=== PATIENT | female | born 1980 | race Hispanic/Latino ===

== ENCOUNTER 2016-12-22 21:27 | Emergency (ER) | payer OTHER ==
[~2016-12-22] VITALS: Ht 165.1 cm; Wt 97.5 kg
[2016-12-22 21:37] VITALS: BP 136/87
--- NOTE | 2016-12-22 21:40 | ED UPPER/LOWER EXTREMITY COMPL ---
History of Present Illness General Chief Complaint: Lower Extremity Problems Stated Complaint: RIGHT LEG PAIN ON AND OFF Source: patient, old records Exam Limitations: no limitations Vital Signs & Intake/Output Vital Signs & Intake/Output Vital Signs Date Time Temp Pulse Resp B/P B/P Pulse O2 O2 Flow FiO2 Mean Ox Delivery Rate 12/22 2136 97.9 75 15 136/87 100 Room Air Allergies Coded Allergies: NO KNOWN ALLERGIES (02/03/14) Reconcile Medications Methocarbamol (Robaxin-750) 750 MG TABLET 1 TAB PO TID PRN PAIN Triage Note: PT TO ED FOR INTERMITTENT PAIN IN R LEG X1 MONTH. PT CONCERNED THAT THIS PAIN IS ATTRIBUTED TO AN INGROWN HAIR SHE HAD IN HER R GROIN APPROX 1 MONTH AGO WELL. Triage Nurses Notes Reviewed? yes Onset: Gradual Duration: CONSTANT X 1 MONTH Timing: recent history Severity: mild Severity Numbers: 4 Pain/Injury Location: Right: Leg. Method of Injury: unknown No Modifying Factors: none Associated Symptoms: none : No Patient currently breastfeeds: No HPI: 36-year-old female presents to ER for evaluation complaining of intermittent anterior right leg pain that radiates around to her back for the past 1 month. She states the symptoms began after she's had a "infected hair follicle" 1 month ago. She states the symptoms resolved on their own at the time however that ever since she states her leg has been "locking up". She denies pain at this time she denies any rashes to her skin no history of abscess requiring drainage. Her last menstrual period is currently now. She denies any urinary complaints. She states the pain and really radiates down her leg no leg swelling. No other joint pain no other modifying factors or associated symptoms. She is not sought care for the symptoms until today. She took her mother's Flexeril without improvement. (NIRAV RAMIREZ) Past History Travel History Traveled to [place] past 21 day No Medical History Any Pertinent Medical History? none Neurological: NONE EENT: NONE Cardiovascular: NONE Respiratory: NONE Gastrointestinal: NONE Hepatic: NONE Renal: NONE Musculoskeletal: NONE Psychiatric: NONE Endocrine: NONE Blood Disorders: NONE Cancer(s): NONE Surgical History Surgical History: none Psychosocial History What is your primary language Japanese Tobacco Use: Never used Daily Tobacco Use Amount/Type: => 5 Cigarettes daily ETOH Use: occasional use Illicit Drug Use: denies illicit drug use Family History Hx Contributory? No (NIRAV RAMIREZ) Review of Systems Review of Systems Constitutional: Reports: see HPI. All Other Systems: Reviewed and Negative Comments Review of systems: See HPI, All other systems negative. Constitutional, no chills no fever, no malaise no weight loss HEENT: No visual changes no sore throat no congestion, no ear pain Cardiovascular: No chest pain , no palpitation , no orthopnea Skin: no rashes, no change in skin Respiratory: No dyspnea no cough no sputum no hemoptysis GI: No nausea no vomiting, no diarrhea, no bloating/constipation : No dysuria No hematuria, no frequency, no discharge Muscle skeletal: No joint pain, no joint swelling, no back pain, no neck pain, Neurologic: No numbness no confusion, no headache Psych: No stress Heme/endocrine: No bruising no bleeding Immunology: No lymphadenopathy (NIRAV RAMIREZ) Physical Exam Physical Exam General Appearance: well developed/nourished, no apparent distress, alert, awake Comments: Well-developed well-nourished patient in no apparent distress. HEENT: Atraumatic, extraocular motion intact Neck: Supple, FROM Back: FROM Cardiovascular: Regular rate and rhythms no murmurs rubs or gallops, Respiratory: No respiratory distress. Patient speaking in full complete sentences. Breath sounds clear to auscultation bilaterally: NO W/R/R Upper Extremities: full range of motion Hip/Pelvis: Atraumatic/Stable. FROM. No pain with pelvic compression Knee: Atraumatic/stable. FROM. No joint swelling, no effusion. No laxity. Negative amparo/anterior drawer test. No pain with ROM Leg: Atraumatic. Nontender. No edema, 5 out of 5 strength in the lower extremity, normal dorsiflexion of great toe bilaterally, gross sensation is intact, patellar tendon reflex 2+ bilaterally. Ankle/Foot: Atraumatic/stable. Skin intact. FROM. No swelling, no effusion. No laxity on exam Pulses: Normal/equal DP/PT pulses bilaterally. Brisk cap refill Neuro: awake, alert, and oriented to person, place and time. There were no obvious focal neurologic abnormalities. Skin: Warm & dry;No appreciable rash on exposed skin, no induration no erythema Psych: Mood affect normal, normal memory normal judgment. (NIRAV RAMIREZ) Progress Differential Diagnosis: arterial insufficiency, cellulitis, CHF, compartment syndrome, contusion, dislocation, DVT, gout, sprain, tendon injury, abscess, folliculitis, SCIATICA Plan of Care: I discussed with the patient at length all of their results. I had an extensive conversation regarding need for close follow up with their primary care physician this week as well as return precautions. I answered all of their questions, they feel comfortable with the plan and follow-up care. (NIRAV RAMIREZ) Departure Departure Time of Disposition: 2207 Disposition: HOME OR SELF CARE Condition: Stable Clinical Impression Primary Impression: Leg pain Referrals: PATIENT HAS NO PRIMARY CARE DR Additional Instructions: REST, ICE, ROBAXIN DIRECTED. FOLLOW UP WITH DR SANTIAGO NEXT WEEK. RETURN WITH ANY CONCERNS Departure Forms: Customer Survey General Discharge Information Prescriptions: Current Visit Scripts Methocarbamol (Robaxin-750) 1 TAB PO TID PRN PAIN #10 TAB (NIRAV RAMIREZ) PA/SUPERVISOR PHOSPHATIC FERTILIZER Co-Sign Statement Statement: ED Attending supervision documentation- [] I saw and evaluated the patient. I have also reviewed all the pertinent lab results and diagnostic results. I agree with the findings and the plan of care as documented in the PA's/SUPERVISOR PHOSPHATIC FERTILIZER's documentation. [X] I have reviewed the ED Record and agree with the PA's/SUPERVISOR PHOSPHATIC FERTILIZER's documentation. [] Additions or exceptions (if any) to the PAs/SUPERVISOR PHOSPHATIC FERTILIZER's note and plan are summarized below: [] (ALEJANDRO KING,CHRISTINE)
[2016-12-22] MEDS ORDERED: ROBAXIN-750750 M1 PO (22:08)
== END 2016-12-22 22:13 ==
LOC: ERH 21:27
DX: M79.604 Pain in right leg (principal)

== ENCOUNTER 2017-01-16 20:28 | Emergency (ER) | payer OTHER ==
[~2017-01-16] VITALS: Ht 165.1 cm; Wt 99.8 kg
[~2017-01-16 20:28] MED LIST: ROBAXIN-750750 M1 PO
--- NOTE | 2017-01-16 21:06 | ED GENERAL ADULT ---
History of Present Illness General Chief Complaint: Lower Extremity Problems Stated Complaint: RIGHT SIDE BACK AND LEG PAIN Source: patient Exam Limitations: no limitations Vital Signs & Intake/Output Vital Signs & Intake/Output Vital Signs Date Time Temp Pulse Resp B/P B/P Pulse O2 O2 Flow FiO2 Mean Ox Delivery Rate 01/166 97.9 76 18 128/70 98 Room Air 01/16 2046 97.5 83 21 121/82 97 Room Air ED Intake and Output 01/17 0000 01/16 1200 Intake Total 0 Output Total Balance 0 Intake, Oral 0 Patient 220 lb Weight Weight Reported by Patient Measurement Method Allergies Coded Allergies: No Known Allergies (01/16/17) Reconcile Medications Cyclobenzaprine HCl 10 MG TABLET 1 TAB PO 4 TIMES/DAY PRN MUSCLE SPASM Ibuprofen 800 MG TABLET 1 TAB PO TID PRN pain Methocarbamol (Robaxin-750) 750 MG TABLET 1 TAB PO TID PRN PAIN Triage Note: TRIAGE: PT TO ER C/C PAIN FROM R GROIN DOWN TO KNEE AND INTO BACK X 1 MONTH. CONSTANT SINCE ONSET THOUGH WAXES/WANES IN INTENSITY. WORSE SINCE YESTERDAY, STATES WAS "GOING UP THE STAIRS CONSTANTLY TO DO CLOTHES" SO MAY HAVE AGGRAVATED IT. TAKING ALEVE WITH NO RELIEF. GIVEN TYLENOL AT TRIAGE PER REQUEST. WAS SEEN HERE FOR SAME BUT "THEY DIDN'T CHECK NOTHING, SAID IT MAY HAVE BEEN A SPRAINED MUSCLE, BUT IT WASN'T BAD THEN. TODAY IT WENT TOO MUCH." Triage Nurses Notes Reviewed? yes Onset: Gradual Duration: week(s): Timing: recent history Injury Environment: home Severity: mild, moderate Modifying Factors: Worsens With: movement. Associated Symptoms: muscle spasm : No Patient currently breastfeeds: No HPI: 36-year-old woman in prior good health presents with one-month history of right sided lower lumbar pain. She states the pain radiates from her back into her buttock and down her posterior leg. She notes that she is able to ambulate. She's been taking naproxen with mild improvement. She notes no injury. She notes that it hurts when she moves a lot. She has no fever chills rashes joint swelling weakness urinary incontinence. She is otherwise well and has no other concerns. Past History Travel History Traveled to [place] past 21 day No Medical History Any Pertinent Medical History? see below for history Neurological: NONE EENT: NONE Cardiovascular: NONE Respiratory: NONE Gastrointestinal: NONE Hepatic: NONE Renal: NONE Musculoskeletal: NONE Psychiatric: NONE Endocrine: NONE Blood Disorders: NONE Cancer(s): NONE CNC MACHINE OPERATOR/Reproductive: NONE Surgical History Surgical History: none Psychosocial History What is your primary language Kyrgyz Tobacco Use: Current Daily Use Daily Tobacco Use Amount/Type: => 5 Cigarettes daily ETOH Use: occasional use Illicit Drug Use: denies illicit drug use Family History Hx Contributory? No Review of Systems Review of Systems Constitutional: Reports: no symptoms. EENTM: Reports: no symptoms. Respiratory: Reports: no symptoms. Cardiovascular: Reports: no symptoms. GI: Reports: no symptoms. Genitourinary: Reports: no symptoms. Musculoskeletal: Reports: no symptoms. Skin: Reports: no symptoms. Neurological/Psychological: Reports: no symptoms. Hematologic/Endocrine: Reports: no symptoms. Immunologic/Allergic: Reports: no symptoms. All Other Systems: Reviewed and Negative Physical Exam Physical Exam General Appearance: well developed/nourished, mild distress Head: atraumatic, normal appearance Eyes: Bilateral: normal appearance. Ears, Nose, Throat: normal pharynx, normal ENT inspection Neck: normal inspection, supple, full range of motion Respiratory: normal breath sounds, chest non-tender, no respiratory distress, quiet respiration, lungs clear Cardiovascular: regular rate/rhythm Gastrointestinal: normal bowel sounds, soft, non-tender, no organomegaly Back: normal inspection, normal range of motion, muscle spasm, no vertebral tenderness, region with moderate para vertebral muscle spasm and tenderness to palpation Extremities: normal inspection Neurologic/Psych: no motor/sensory deficits, awake, alert, oriented x 3, normal gait, normal mood/affect Reflexes: 1+: bicep (R), bicep (L), knee (R), knee (L). Skin: intact, normal color, warm/dry Core Measures ACS in differential dx? No CVA/TIA Diagnosis: No Severe Sepsis Present: No Septic Shock Present: No Progress Differential Diagnoses I considered the following diagnoses in my evaluation of the patient: Muscle spasm versus other versus sciatica versus disc disease Plan of Care: Current Medications Sig/Vicki Start time Last Medication Dose Stop Time Status Admin Cyclobenzaprine HCl 10 MG ONCE ONE 01/16 2215 UNVr (Flexeril 10MG Tab) 01/17 2216 Ketorolac 60 MG ONCE ONE 01/16 2215 UNVr Tromethamine 06/04 2216 (Toradol) Initial ED EKG: none Departure Departure Disposition: HOME OR SELF CARE Condition: Stable Clinical Impression Primary Impression: Back pain Secondary Impressions: Myalgia Referrals: OBIE SANTIAGO MD (PCP/Family) Departure Forms: Customer Survey General Discharge Information Prescriptions: Current Visit Scripts Ibuprofen 1 TAB PO TID PRN pain #60 TAB Ref 1 Cyclobenzaprine HCl 1 TAB PO 4 TIMES/DAY PRN MUSCLE SPASM #30 TAB Ref 1 Comments Encourage close follow-up with PMD and referral for physical therapy. I gave a prescription for ibuprofen and Flexeril. Close follow-up and advised Critical Care Note Critical Care Note Critical Care Time: non-applicable
[2017-01-16] MEDS ORDERED: CYCLOBENZAPRINE10 M1 PO (22:15)
[2017-01-16] MEDS ORDERED: IBUPROFEN800 M1 PO (22:15)
[2017-01-16 22:36] VITALS: BP 128/70
== END 2017-01-16 22:36 ==
LOC: ERH 20:28
DX: M54.5 Low back pain (principal); M79.1 Myalgia
CPT/HCPCS: 96372; J1885

== ENCOUNTER 2017-09-25 16:44 | Emergency (ER) | payer OTHER ==
[~2017-09-25] VITALS: Ht 165.1 cm; Wt 94.3 kg
[~2017-09-25 16:44] MED LIST changes: +BACTRIM DS TAB1 EACH PO; +CYCLOBENZAPRINE10 M1 PO; +IBUPROFEN800 M1 PO
--- NOTE | 2017-09-25 18:07 | ED GI/GU/ABDOMINAL COMPLAINT ---
History of Present Illness General Chief Complaint: Nausea, Vomiting, Diarrhea Stated Complaint: VOMITING,HEADACHE,DIZZY,DIARRHEA Source: patient Exam Limitations: no limitations Vital Signs & Intake/Output Vital Signs & Intake/Output Vital Signs Date Time Temp Pulse Resp B/P B/P Pulse O2 O2 Flow FiO2 Mean Ox Delivery Rate 09/25 1819 97.5 64 18 143/76 95 Room Air 09/25 1653 96.3 67 15 139/82 95 Room Air Room Air ED Intake and Output 09/26 0000 09/25 1200 Intake Total 0 Output Total Balance 0 Intake, IV 0 Patient 208 lb Weight Weight Reported by Patient Measurement Method Allergies Coded Allergies: No Known Allergies (09/25/17) Reconcile Medications Ibuprofen 800 MG TABLET 1 TAB PO TID pain/aches Ondansetron (Zofran Odt) 4 MG TAB.RAPDIS 1 TAB SL TID nausea Sulfamethoxazole/Trimethoprim (Bactrim Ds Tablet) 800 MG-160 MG TABLET 1 TAB PO BID abscess Triage Note: PT TO ED FOR C/C OF VOMITING X 3 TIMES, HEADACHE, DIARRHEA. DENIES SORE THROAT, COUGH, BODY ACHES, CHILLS, ABD PAIN. Triage Nurses Notes Reviewed? yes ? N Is pt currently ? No Onset: Abrupt Duration: hour(s):, constant, continues in ED Timing: recent history Location: generalized abdomen Radiation: no radiation Activities at Onset: none No Modifying Factors: none HPI: 37-year-old female comes into the emergency room for further evaluation of associated nausea and headache. Patient reports that she started to not feel well last few hours. Symptoms of chills body. Some associated nausea with associated headache. Denies any vomiting. Denies any diarrhea at this time. Denies any pain in her abdomen. Denies any chest pain or shortness of breath. She comes in for further evaluation. (Latrell Sultana) Past History Travel History Traveled to [place] past 21 day No Medical History Any Pertinent Medical History? see below for history Neurological: NONE EENT: NONE Cardiovascular: NONE Respiratory: NONE Gastrointestinal: NONE Hepatic: NONE Renal: NONE Musculoskeletal: NONE Psychiatric: NONE Endocrine: NONE Blood Disorders: NONE Cancer(s): NONE INSURANCE MARKETING SPECIALIST/Reproductive: NONE Surgical History Surgical History: none Psychosocial History What is your primary language Japanese Tobacco Use: Current Daily Use Daily Tobacco Use Amount/Type: => 5 Cigarettes daily ETOH Use: occasional use Illicit Drug Use: denies illicit drug use Family History Hx Contributory? No (Latrell Sultana) Review of Systems Review of Systems Constitutional: Reports: no symptoms. EENTM: Reports: no symptoms. Respiratory: Reports: no symptoms. Cardiovascular: Reports: no symptoms. GI: Reports: see HPI. Genitourinary: Reports: no symptoms. Musculoskeletal: Reports: no symptoms. Skin: Reports: no symptoms. Neurological/Psychological: Reports: see HPI. Hematologic/Endocrine: Reports: no symptoms. Immunologic/Allergic: Reports: no symptoms. All Other Systems: Reviewed and Negative (Latrell Sultana) Physical Exam Physical Exam General Appearance: well developed/nourished, no apparent distress, alert, awake Head: atraumatic Eyes: Bilateral: normal appearance. Ears, Nose, Throat, Mouth: hearing grossly normal, moist mucous membrane Neck: normal inspection Respiratory: normal breath sounds, no respiratory distress Cardiovascular: regular rate/rhythm Gastrointestinal: soft, non-tender, no guarding, no rebound tenderness Back: normal inspection Extremities: normal range of motion Neurologic/Psych: awake, alert, oriented x 3, normal gait Skin: intact, normal color Core Measures ACS in differential dx? No Sepsis Present: No Sepsis Focused Exam Completed? No (Latrell Sultana) Progress Differential Diagnosis: appendicitis, biliary colic, bowel obstruction, cholecystitis, diverticulitis, pancreatitis, peptic ulcer, PUD/GERD, perforated viscous, SBO, threatened AB, UTI/pyelo Plan of Care: Orders Procedure Date/time Status LIPASE 09/25 174 Complete HUMAN BETA HCG SCREEN 09/25 174 Complete COMPREHENSIVE METABOLIC PANEL 09/25 1748 Complete CBC WITHOUT DIFFERENTIAL 09/25 174 Complete RAPID VIRAL INFLUENZA A 09/25 164 Complete URINE 09/25 164 Complete URINALYSIS 09/25 1648 Complete Laboratory Tests 09/25/17 1920: Urinalysis MOD H, Urine Color YEL, Urine Clarity HAZY H, Urine pH 7.0, Ur Specific [place] 1.025, Urine Protein NEG, Urine Ketones NEG, Urine Nitrite NEG, Urine Bilirubin NEG, Urine Urobilinogen 0.2, Ur Leukocyte Esterase NEG, Ur Microscopic SEDIMENT EXAMINED, Urine RBC 1-3, Urine WBC 1-3 H, Ur Epithelial Cells FEW, Urine Bacteria FEW H, Urine Mucus MOD H, Urine Hemoglobin NEG, Urine Glucose NEG, Urine Test NEGATIVE 09/25/17 1811: Anion Gap 13, Estimated GFR > 60, BUN/Creatinine Ratio 17.5, Glucose 93, Calcium 9.8, Total Bilirubin 0.4, AST 18, ALT 23, Alkaline Phosphatase 52, Total Protein 7.2, Albumin 4.3, Globulin 2.9, Albumin/Globulin Ratio 1.5, Lipase 54, Total Beta HCG NEGATIVE, CBC w Diff NO MAN DIFF REQ, RBC 4.73, MCV 93.9, MCH 30.8, MCHC 32.8 L, RDW 12.7, MPV 8.3, Gran % 80.4 H, Lymphocytes % 12.7 L, Monocytes % 6.0, Eosinophils % 0.6, Basophils % 0.3, Absolute Granulocytes 9.0 H, Absolute Lymphocytes 1.4, Absolute Monocytes 0.7 H, Absolute Eosinophils 0.1 , Absolute Basophils 0 Microbiology 09/25 1658 NASOPHARYN: Influenza Virus A & B Rapid Smear - COMP Initial ED EKG: none Comments: 09/25/2017 9:09:50 PM Upon reevaluating the patient her symptoms completely resolved. She currently has no headache or nausea. She feels almost 100% better. She feels ready to go. Results discussed with the patient. Follow-up with PCP. Return if any other concerns worsening symptoms. (Latrell Sultana) Departure Departure Disposition: HOME OR SELF CARE Condition: Stable Clinical Impression Primary Impression: Nausea Secondary Impressions: Headache Referrals: Rogelio Moulton MD (PCP/Family) Additional Instructions: Take Zofran ODT as prescribed. Take ibuprofen. Rest. Follow-up with PCP. Return if any concerns worsening symptoms. Drink plenty of fluids. Please go over all results of today's visit with your primary care doctor. Contact your primary care doctor to let them know you were here in the emergency room. There may be nonspecific findings which may not be related to your visit today here in the emergency room but may require further evaluation and chronic monitoring by your primary care doctor. If you had a laceration today the chance of foreign body always remains. You should follow-up with your primary care doctor for recheck in 3-5 days for a wound check. If you had an x-ray done there is a chance that a fracture could have been missed on initial read and you should follow-up with your primary care doctor for repeat x-rays if symptoms persist. If your blood pressure was elevated here in the emergency room please have rechecked by kt primary care doctor within the next 48. If you were prescribed a narcotic here in the emergency room or any type of controlled substances you're not allowed to drive while taking this medication or operate any type of heavy machinery. Narcotics can make you feel lightheaded dizziness nausea and can cause constipation. You may need to tile picker a stool softener. Thank you for choosing [facility] emergency room. Please return to the emergency room immediately if you have any other concerns worsening of symptoms. Departure Forms: Customer Survey General Discharge Information Prescriptions: Current Visit Scripts Ondansetron (Zofran Odt) 1 TAB SL TID #10 TAB Ibuprofen 1 TAB PO TID #20 TAB (Latrell Sultana) PA/EDUCATION REPORTER Co-Sign Statement Statement: ED Attending supervision documentation- [] I saw and evaluated the patient. I have also reviewed all the pertinent lab results and diagnostic results. I agree with the findings and the plan of care as documented in the PA's/EDUCATION REPORTER's documentation. [X] I have reviewed the ED Record and agree with the PA's/EDUCATION REPORTER's documentation. [] Additions or exceptions (if any) to the PAs/EDUCATION REPORTER's note and plan are summarized below: [] (Estela KING,John Rowley)
[2017-09-25 18:19] VITALS: BP 143/76
[2017-09-25 18:48] LABS: ABSOLUTE BASOPHIL COUNT 0 /CUMM (0.0-0.2); ABSOLUTE EOSINOPHIL COUNT 0.1 /CUMM (0.0-0.7); ABSOLUTE LYMPH COUNT 1.4 /CUMM (1.2-3.4); ABSOLUTE MONOCYTE COUNT 0.7 /CUMM (0.10-0.60); BASOPHIL % 0.3 % (0.0-2.0); EOSINOPHIL % 0.6 % (0-5); GRANULOCYTE % 80.4 % (42.2-75.2); HEMATOCRIT 44.5 % (37-47); MEAN CORPUSCULAR HGB 30.8 PG (27.0-31.0); MEAN CORPUSCULAR HGB CONC 32.8 G/DL (33.0-37.0); MEAN CORPUSCULAR VOLUME 93.9 FL (81.0-99.0); MEAN PLATELET VOLUME 8.3 FL (7.4-10.4); PLATELET COUNT 432 /CUMM (130-400); RBC DISTRIBUTION WIDTH 12.7 % (11.5-14.5); RED BLOOD CELL CT 4.73 /CUMM (4.20-5.40); WHITE BLOOD CELL COUNT 11.3 /CUMM (4.8-10.8)
[2017-09-25] MEDS ORDERED: ZOFRAN ODT4 M1 SL (20:11)
[2017-09-25] MEDS ORDERED: IBUPROFEN800 M1 PO (20:11)
== END 2017-09-25 20:29 ==
LOC: ERH 16:44
PROVIDERS: Physician Assistant Medical
DX: R11.2 Nausea with vomiting, unspecified (principal); R10.84 Generalized abdominal pain
CPT/HCPCS: 81001; 81025; 87804; 87804-59; 96372; J1885; J3101